=== PATIENT | female | born 1980 | race Caucasian/White ===

== ENCOUNTER → 2024-12-23 | Day surgery (SDC) | payer BC ==
[~2024-12-23] MED LIST: ADLT ASA LOW81 MG PO; ATORVASTATIN CA40 MG PO; BAYER ASPIRIN E81 MG PO; LACTATED RINGER'S 1,000 ML IV ONE; LIDOCAINE HCL 2% 2ML SDV IV ONE; LOSARTAN POTASS50 MG PO; PROPOFOL 500 MG/50 ML VIAL IV ONE; VALSARTAN40 MG PO
[2024-12-23 10:38] VITALS: BP 157/102
== END | disposition home or self-care (01) | DRG 392 ==
LOC: ENDO 07:48 → ORM 11:15 → ENDO 11:50 → ORM 12:00
PROVIDERS: ATTEND Surgery
PROC: 0DJD8ZZ Inspection of Lower Intestinal Tract, Via Natural or Artificial Opening Endoscopic (ICD-10-PCS; principal; 2024-12-23)
PROC: 0DB98ZX Excision of Duodenum, Via Natural or Artificial Opening Endoscopic, Diagnostic (ICD-10-PCS; 2024-12-23)
PROC: 0DB78ZX Excision of Stomach, Pylorus, Via Natural or Artificial Opening Endoscopic, Diagnostic (ICD-10-PCS; 2024-12-23)
DX: K29.70 Gastritis, unspecified, without bleeding (principal); K29.80 Duodenitis without bleeding; K44.9 Diaphragmatic hernia without obstruction or gangrene; K64.8 Other hemorrhoids; I10 Essential (primary) hypertension